=== PATIENT | male | born 1995 | race Caucasian/White ===

== ENCOUNTER 2021-08-24 20:15 | Emergency (ER) | payer OTHER, SELFPAY ==
[2021-08-24 21:42] VITALS: BP 155/84; PULSE 78; RESP 18; TEMP 36.8; O2SAT 98; BMI 40.4
--- NOTE | 2021-08-24 22:00 | HMH.EDUTC ---
[place] Disposition Clinical Impression: Strep throat, Gastroenteritis, Viral syndrome Disposition: Home, Self-Care Condition on Discharge: Good Instructions: Strep Throat, DI for Strep Throat, DI for Viral Gastroenteritis -- Adult, Ondansetron, DI for COVID-19 (Suspected or Confirmed ), Preventing the Spread of Coronavirus Discharge Instructions Additional Instructions: GO TO THE ER IF YOU HAVE MORE CHEST PAIN. Drink plenty of fluids. Water or a sports electrolyte drink (like gatorade, pedialyte, etc) would be best. Take tylenol or ibuprofen for pain or fever. Take the medications as directed. Follow up with your regular doctor. GO TO THE ER FOR ANY WORSENING SYMPTOMS Throw your tooth brush away and get a new one. Quarantine until you know the results of your covid-19 test. Notify your school or workplace of your results and follow their instructions regarding return to work/school. You need to get a primary care physician and get a good check up. Your issues, such as the decreased appetite for the past 6 weeks need to be checked out further and a primary care physician would be best to do this. We are giving you a list of physicians that are taking new patients. Prescriptions: Ondansetron [Zofran 4mg ODT] 4 mg PO Q8HP PRN #20 tab PRN Reason: Nausea Transmission Status: Received by [facility] Amoxicillin/Potassium Clav [Augmentin 875-125 Tablet] 1 tab PO Q12H 10 Days #20 tab Transmission Status: Received by [facility] Famotidine [Pepcid 20mg Tablet] 20 mg PO BID 14 Days #28 tab Transmission Status: Received by [facility] Referrals: Provider,Referral, [Primary Care Provider] - Forms: Work/School Release Time of Disposition: 22:19 Medical Decision Making - Medical Records Medical records reviewed: No: I reviewed the patient's medical records. - [place] Inquiry Pt receiving controlled substance: No Vital Signs: 08/24/21 21:42 08/24/21 22:25 Temperature 98.2 F 98.2 F Temperature Source Oral Oral Pulse Rate 88 Pulse Rate [Right Brachial] 78 Respiratory Rate 18 18 Blood Pressure 148/89 H Blood Pressure [Right Arm] 155/84 H Blood Pressure Mean [Right Arm] 107 Blood Pressure Source Automatic Cuff Blood Pressure Source [Right Arm] Automatic Cuff Blood Pressure Position Sitting Blood Pressure Position [Right Arm] Sitting 02 Sat by Pulse Oximetry 98 Oxygen Delivery Method Room Air Room Air - Lab Data Lab results reviewed: Yes: I reviewed the patient's lab results. Lab Results 08/24/21 21:50: Influenza Type A Ag Negative, Influenza Type B Ag Negative 08/24/21 21:50: Strep Scn [facility] Positive A Orders (Tests/Meds): ORDERS Category Date Time Status Covid-19 Nasal PCR ([facility]) Routine Lab 08/24/21 21:51 Received Medical Decision Narrative: His ekg showed nsr and no abnormalities. He refused transfer to the ER for further evaluation of his episode of chest pain at this time. [place] HPI - General Stated complaint: stomach pains, diarrhea, vomiting Time Seen by Provider: 08/24/21 22:01 Mode of Arrival: Ambulatory Source of Information: Patient, Spouse Limitations: No Limitations Description of Symptoms (Recalled from Triage Doc. by RN): pt. states he has been having vomiting and diarrhea since Tuesday. His states he was complaining of chest pain across the middle of his chest and down his left arm from his shoulder to his elbow. Pt. states he is not currently having any chest pain HEENT Symptoms (Recalled from RN notes): No Resp Symptoms (Recalled from RN notes): No Skin Symptoms (Recalled from RN notes): No MS Symptoms (Recalled from RN notes): No Functional Status (Recalled from RN notes): n/a - History of Present Illness Provider Complaint: He states that for the past 2 days he has had n/v/d. He has had abdominal cramping also. 2 days ago, he had some midsteral chest pain. He had vomited a short while before hi
[2021-08-24 22:04] LABS: UTC Influenza A Antigen Negative (Negative); UTC Influenza B Antigen Negative (Negative); UTC Strep Screen (Rapid) Positive (Negative)
--- NOTE | 2021-08-24 22:15 | ECG_ITS ---
APPROVED REPORT Exam: Resting ECG HR:80 bpm ECG Measurements Heart Rate 80 AXES DC 183 P 35 QRSd 78 QRS 16 QT 320 T 14 QTc 356 Conclusion SINUS RHYTHM NORMAL ECG INTERPRETATION BASED ON A DEFAULT AGE OF 38 YEARS UNCONFIRMED REPORT Electronically signed by : Paulo Cruz MD 08/25/2021 13:48:18
[2021-08-24 22:25] VITALS: BP 148/89; PULSE 88; RESP 18; TEMP 36.8; O2SAT 100
== END 2021-08-24 22:28 | disposition home or self-care (01) ==
PROVIDERS: Emergency Provider Nurse Practitioner Family
DX: J02.0 Streptococcal pharyngitis (principal); K52.9 Noninfective gastroenteritis and colitis, unspecified; R07.9 Chest pain, unspecified
CPT/HCPCS: 87804; 87880; 93005; 99202; C9803; G0463; U0003; U0005